=== PATIENT | male | born 1995 | race Caucasian/White ===

== ENCOUNTER 2018-03-21 13:56 | Emergency (ER) | payer OTHER ==
[~2018-03-21] VITALS: Ht 167.6 cm; Wt 65.8 kg
[~2018-03-21 13:56] MED LIST: LUBRICANT EYE D15 ML OPHT; PROTONIX20 MG; ZANTAC150 MG
== END 2018-03-21 16:53 | disposition home or self-care (01) ==
LOC: ER 13:56
DX: S00.201A Unspecified superficial injury of right eyelid and periocular area, initial encounter (principal); X58.XXXA Exposure to other specified factors, initial encounter; Y93.89 Activity, other specified; Y92.89 Other specified places as the place of occurrence of the external cause; Y99.8 Other external cause status

== ENCOUNTER 2022-03-20 09:00 | Emergency (ER) | payer OTHER ==
[~2022-03-20] VITALS: Ht 172.7 cm; Wt 72.6 kg
[2022-03-20] MEDS ORDERED: OSEL75CA PO (11:53)
[2022-03-20] MEDS ORDERED: TUSSI PRES-B L480 ML PO (11:53)
== END 2022-03-20 12:04 | disposition home or self-care (01) ==
LOC: EMR PED 09:00 → ER 09:04
DX: B34.9 Viral infection, unspecified (principal); R53.81 Other malaise; Z20.822 Contact with and (suspected) exposure to COVID-19

== ENCOUNTER 2022-04-27 10:17 | Emergency (ER) | payer OTHER ==
[~2022-04-27] VITALS: Ht 172.7 cm; Wt 72.6 kg
[~2022-04-27 10:17] MED LIST changes: +OSEL75CA PO; +TUSSI PRES-B L480 ML PO
== END 2022-04-27 13:18 | disposition home or self-care (01) ==
LOC: ER 10:17
DX: J03.90 Acute tonsillitis, unspecified (principal)

== ENCOUNTER 2022-09-07 09:49 | Emergency (ER) | payer OTHER ==
[~2022-09-07] VITALS: Ht 172.7 cm; Wt 68.0 kg
== END 2022-09-07 16:32 | disposition home or self-care (01) ==
LOC: ER 09:49
DX: R10.9 Unspecified abdominal pain (principal); A08.8 Other specified intestinal infections

== ENCOUNTER 2023-08-20 02:17 | Emergency (ER) | payer OTHER ==
[~2023-08-20] VITALS: Ht 177.8 cm; Wt 74.8 kg
[2023-08-20] MEDS ORDERED: NAPHAZOLINE HCL/PHENIRAMINE 20 DR/ML DROPS OP STA (03:14)
[2023-08-20] MEDS ORDERED: GENTAMICIN SULFATE 0.15 MG/DR DROPS 5ML OP STA (04:44)
[2023-08-20] MEDS ORDERED: TETRACAINE HCL 20 DR/ML DROPS OP STA (04:44)
[2023-08-20] MEDS ORDERED: REDNESS RELIEF15 ML OP (04:48)
[2023-08-20] MEDS ORDERED: GENTAMICIN SULFA5 ML OP (04:48)
== END 2023-08-20 04:53 ==
LOC: ER 02:18
DX: H57.12 Ocular pain, left eye (principal)